=== PATIENT | female | born 1935 | race Caucasian/White ===

== ENCOUNTER 2017-04-21 15:18 | Emergency (ER) | payer MEDICARE ==
[2017-04-21] MEDS ORDERED: traMADol TAB* 50 MG PO ONE (16:12)
--- NOTE | 2017-04-21 16:12 | UC ---
Back Pain HPI - HPI Summary HPI Summary: 3 weeks of worsening hip/back pain on left side--no known injuries or falls, never haad pain simial to this before--HAs been doing usual activities shoveling snow and bringing in wood.States she has been resting and taking a lot of aspirin and that has not helped - History of Current Complaint Chief Complaint: UCLowerExtremity Stated Complaint: LEFT SIDE HIP AND LEG PAIN Time Seen by Provider: 04/21/17 16:00 Hx Obtained From: Patient ?: No Onset/Duration: Gradual Onset, Lasting Weeks - 3, Still Present Timing: Constant Severity Initially: Moderate Severity Currently: Moderate Back Pain: Is Discrete @ - left SI Joint Character: Aching, Throbbing Aggravating Factor(s): Movement, Lifting, Bending, Walking Alleviating Factor(s): Nothing Associated Signs And Symptoms: Positive: Negative - Allergies/Home Medications Allergies/Adverse Reactions: Allergies Allergy/AdvReac Type Severity Reaction Status Date / Time Bee Venom Allergy Swelling Verified 04/21/17 15:46 Penicillins [PCN] Allergy Hives Verified 04/21/17 15:46 Home Medications: Home Medications Aspirin [Aspirtab Maximum Strength] 250 mg PO ONCE PRN 04/21/17 [History Confirmed 04/21/17] Lisinopril [Lisinopril 40 MG-] 40 mg PO DAILY 04/21/17 [History Confirmed ] Simvastatin [Zocor 5 MG-] 20 mg PO DAILY 04/21/17 [History Confirmed 04/21/17] PMH/Surg Hx/FS Hx/Imm Hx Previously Healthy: No Endocrine History: Dyslipidemia Cardiovascular History: Hypertension - Surgical History Surgical History: Yes Surgery Procedure, Year, and Place: C section x1. Right vein removed. T&A - Family History Known Family History: Positive: None - Social History Occupation: Retired Lives: With Family Alcohol Use: None Substance Use Type: None Smoking Status (MU): Never Smoked Tobacco Review of Systems Constitutional: Negative Skin: Negative Eyes: Negative ENT: Negative Respiratory: Negative Cardiovascular: Negative Gastrointestinal: Negative Genitourinary: Negative Motor: Negative Neurovascular: Negative Musculoskeletal: Arthralgia - pain left si jointradiating in to buttock and leg Neurological: Negative Psychological: Negative Is Patient Immunocompromised?: No All Other Systems Reviewed And Are Negative: Yes Physical Exam Triage Information Reviewed: Yes Appearance: Well-Appearing, No Pain Distress, Well-Nourished Vital Signs: Initial Vital Signs Temp 99.0 F 04/21/17 15:42 Pulse 69 04/21/17 15:42 Resp 14 04/21/17 15:42 BP 175/82 04/21/17 15:42 Pulse Ox 99 04/21/17 15:42 Vital Signs Reviewed: Yes Eye Exam: Normal Eyes: Positive: Conjunctiva Clear ENT Exam: Normal ENT: Positive: Normal ENT inspection, Hearing grossly normal, Pharynx normal. Negative: Trismus, Muffled voice, Hoarse voice, Dental tenderness, Sinus tenderness Dental Exam: Normal Neck exam: Normal Neck: Positive: Supple, Nontender, No Lymphadenopathy Respiratory Exam: Normal Respiratory: Positive: Chest non-tender, No respiratory distress, No accessory muscle use Cardiovascular Exam: Normal Cardiovascular: Positive: RRR, Pulses Normal, Brisk Capillary Refill Musculoskeletal Exam: Normal Musculoskeletal: Positive: No Edema, Strength Limited @ - leg, ROM Limited @ - due to pain Neurological Exam: Normal Neurological: Positive: Alert, Muscle Tone Normal Psychological Exam: Normal Skin Exam: Normal Back Pain Course/Dx - Course Course Of Treatment: PHysical therapy, pain med, exercise follow with pcp and ortho med - Differential Dx/Diagnosis Provider Diagnoses: Left sciatic pain, hypertension in poor control Discharge - Discharge Plan Condition: Stable Disposition: HOME Prescriptions: traMADol TAB* [Ultram*] 25 - 50 mg PO Q8H PRN #20 tab MDD 3 PRN Reason: Pain - Moderate To Severe Patient Education Materials: Sciatica (ED), Hypertension (ED), Lower Back Exercises (ED) Referrals: Renzo Rush MD [Medical Doctor] - If Needed Ibeth Coulter MD [Primary Care Provider] - 1 Week
== END 2017-04-21 16:33 | disposition home or self-care (01) ==
LOC: UCCORT 15:18
DX: M54.32 Sciatica, left side (principal); I10 Essential (primary) hypertension; E78.5 Hyperlipidemia, unspecified
CPT/HCPCS: 99212; A9270-GY; G0463

== ENCOUNTER 2017-10-04 14:15 | Inpatient (IN) | payer MEDICARE ==
[2017-10-04] MEDS ORDERED: NS 0.9% 1000 ML*IV.FLUID IV ONE (14:33)
--- NOTE | 2017-10-04 15:14 | RAD ---
Indication: Fever, weakness, nausea, vomiting 3 days duration. Comparison: No relevant prior exams available on the [facility] PACS for comparison. Technique: Upright AP 1500 hours Report: Elevated lung volumes. Diffuse mild prominence of the interstitial markings. Mild alveolar consolidation at the LEFT lung base. Negative for pleural effusion or pneumothorax. The heart, pulmonary vasculature, and mediastinal contours are unremarkable. Negative for free air beneath the diaphragm. IMPRESSION: #. Mild LEFT basilar airspace consolidation concerning for potential pneumonia. Correlate with clinical assessment. #. Potential chronic obstructive pulmonary disease.
[2017-10-04 15:32] LABS: ABS Basophils 0.1 10^3/ul (0-0.2); ABS Eosinophils 0 10^3/ul (0-0.6); ABS Lymphocytes 0.7 10^3/ul (1.0-4.8); ABS Monocytes 0.4 10^3/ul (0-0.8); ABS Neutrophils 3.9 10^3/ul (1.5-7.7); ABS Nucleated RBC 0 10^3/ul; Eosinophil % 0 % (0-6); Hematocrit 40 % (35-47); Hemoglobin 13.9 g/dl (12.0-16.0); Lymphocyte % 13.3 % (25-47); Mean Corpuscular HGB Conc 35 g/dl (31-36); Mean Corpuscular Hemoglobin 30 pg (27-31); Mean Corpuscular Volume 87 fL (80-97); Mean Platelet Volume 7.8 um3 (7.4-10.4); Nucleated Red Blood Cells % 0; Platelet Count 166 10^3/ul (150-450); Red Blood Count 4.59 10^6/ul (4.00-5.40); Red Cell Distribution Width 13 % (10.5-15); White Blood Count 5.1 10^3/ul (3.5-10.8)
[2017-10-04 15:39] LABS: INR 1.06 (0.77-1.02)
[2017-10-04 15:51] LABS: EGFR Non-African American 52.5 (>60)
[2017-10-04] MEDS ORDERED: cefTRIAXone(*) 1 GM in NS 0.9% 50 ML* 50 ML IVPB ONE (16:03)
[2017-10-04] MEDS ORDERED: Azithromycin IV(*) 500 MG in NS 0.9% 250 ML* 250 ML IVPB ONE (16:03)
[2017-10-04] MEDS ORDERED: Ondansetron INJ* 2 MG/ML VIAL IV ONE (16:12)
[2017-10-04] MEDS ORDERED: Acetaminophen TAB* 325 MG PO ONE (16:12)
[2017-10-04] MEDS ORDERED: Ondansetron INJ* 2 MG/ML VIAL IV PRN (17:26)
[2017-10-04] MEDS ORDERED: Benzonatate CAP* 100 MG PO PRN (17:26)
[2017-10-04 17:33] LABS: Urine Appearance Clear; Urine Blood 1+ (Negative); Urine Color Yellow; Urine Ketones Trace (Negative); Urine Protein Negative (Negative); Urine Specific Gravity 1.004 (1.010-1.030); Urine Urobilinogen Negative (Negative)
[2017-10-04] MEDS ORDERED: NS 0.9% 1000 ML* 1,000 ML IV SCH (18:00)
--- NOTE | 2017-10-04 18:22 | RAD ---
CLINICAL HISTORY: Abdominal pain COMPARISON: None TECHNIQUE: Noncontrast CT examination of the abdomen and pelvis from the lung bases through the initial tuberosities. FINDINGS: VISUALIZED LUNG BASES: The visualized lung bases are grossly clear. There is no pleural effusion. ABDOMEN AND PELVIS: Evaluation of the solid organs and vasculature is limited without intravenous contrast. The liver, spleen, pancreas and adrenal glands are grossly normal in appearance. In the dependent portion of the gallbladder there is hyperattenuating material consistent with stones or sludge. At the distal right renal artery there is a partially calcified focus of aneurysmal dilatation measuring 9 mm in greatest axial dimension (series 4 image 63). Otherwise the kidneys are normal in appearance without focal mass, calcification or signs of hydronephrosis. The small and large bowel are not distended.There are innumerable colonic diverticula, not exhibiting focal inflammatory change. There is no gross retroperitoneal or mesenteric lymphadenopathy. The pelvic viscera is normal in appearance. The moderately calcified abdominal aorta and iliac arteries are normal in course and diameter. Degenerative changes include multilevel loss of intervertebral disc height involving the lower thoracic and lumbar spine.There are no sinister bone lesions. IMPRESSION: 1. Hyperattenuating material in the dependent portion of the gallbladder is consistent with stones or sludge. There is no sign of acute inflammatory change or biliary obstruction. 2. 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 This is incompletely evaluated on noncontrast CT examination and can be further characterize with CTA of the abdomen on a nonemergent basis. 3. Diverticulosis without acute inflammatory changes associated with diverticulitis. 4. Additional chronic and degenerative changes as described in the body the report.
[2017-10-04] MEDS ORDERED: NS 0.9% 500 ML* 500 ML IV ONE (19:10)
--- NOTE | 2017-10-04 20:46 | ED ---
Sharyn Baltazar Edward, scribed for Landry Manzano MD on 10/04/17 at 1450 . HPI Febrile Illness - HPI Summary HPI Summary: 82 y/o female presents to the ED c/o general malaise for the past 3 days. Pt c/ o nausea and dry heaves, ABD pain, diffuse joint pain, feeling hot, weakness, dry mouth, and fatigue for the past three days. The ABD pain is intermittent. Pt has been in bed for the past 3 days. Pt has had a decreased appetite and has not eaten much in the past 3 days. Associated sx: ESPINAL. Denies neck pain, cough. Denies urinary symptoms. - History of Current Complaint Chief Complaint: EDFever Time Seen by Provider: 10/04/17 14:42 Hx Obtained From: Patient Onset/Duration: Started Days Ago Timing: Constant Pain Intensity: 5 Aggravating Factors: Nothing Alleviating Factors: Nothing Associated Signs and Symptoms: Headache, Joint Pain - diffuse, Nausea - and dry heaves, Weakness, Other: - dry mouth, hot, fatigue - Allergy/Home Medications Allergies/Adverse Reactions: Allergies Allergy/AdvReac Type Severity Reaction Status Date / Time Penicillins Allergy Unknown Verified 10/04/17 14:51 Reaction Details Home Medications: Home Medications Hydrochlorothiazide TAB* [Hydrodiuril TAB*] 12.5 mg PO DAILY 10/04/17 [History Confirmed 10/04/17] Lisinopril TAB* [Prinivil TAB*] 40 mg PO DAILY 10/04/17 [History Confirmed 10/04] Simvastatin TAB(NF) [Zocor(NF)] 10 mg PO DAILY 10/04/17 [History Confirmed 10/04] amLODIPine TAB* [Norvasc 5 mg TAB*] 5 mg PO DAILY 10/04/17 [History Confirmed ] PMH/Surg Hx/FS Hx/Imm Hx Previously Healthy: No Cardiovascular History: Reports: Hx Hypertension - Surgical History Surgery Procedure, Year, and Place: C section x1. Right vein removed. T&A Infectious Disease History: No Infectious Disease History: Denies: Traveled Outside the [place] in Last 30 Days - Family History Known Family History: Positive: None - Social History Alcohol Use: None Hx Substance Use: No Substance Use Type: Reports: None Hx Tobacco Use: No Smoking Status (MU): Never Smoked Tobacco Review of Systems Positive: Fatigue, Other - hot Eyes: Negative ENT: Negative Cardiovascular: Negative Respiratory: Negative Positive: Abdominal Pain, Nausea - and dry heaves. Negative: Vomiting Genitourinary: Negative Positive: Other - diffuse joint pain Skin: Negative Positive: Headache, Weakness Psychological: Normal All Other Systems Reviewed And Are Negative: Yes Physical Exam Triage Information Reviewed: Yes Vital Signs On Initial Exam: Initial Vitals Temp Pulse Resp BP Pulse Ox 101.2 F 90 22 101/90 99 10/04/17 14:19 10/04/17 14:19 10/04/17 14:19 10/04/17 14:19 10/04/17 14:19 Vital Signs Reviewed: Yes Appearance: Positive: No Pain Distress, Ill-Appearing Skin: Positive: Warm, Skin Color Reflects Adequate Perfusion, Dry Head/Face: Positive: Normal Head/Face Inspection Eyes: Positive: EOMI, ZULY ENT: Positive: Normal ENT inspection Dental: Positive: Other - oral mucosa dry Neck: Positive: Supple, Nontender Respiratory/Lung Sounds: Positive: Clear to Auscultation, Breath Sounds Present Cardiovascular: Positive: RRR Abdomen Description: Positive: Nontender, Soft Bowel Sounds: Positive: Hypoactive Musculoskeletal: Positive: Normal, Strength/ROM Intact Neurological: Positive: Normal, Sensory/Motor Intact, Alert, Oriented to Person Place, Time Psychiatric: Positive: Affect/Mood Appropriate Diagnostics - Vital Signs Vital Signs Temp Pulse Resp BP Pulse Ox 10/04/17 14:19 101.2 F 90 22 101/90 99 - Laboratory Lab Results: Lab Results 10/04/17 10/04/17 10/04/17 Range/Units 15:24 15:24 15:24 WBC 5.1 (3.5-10.8) 10^3/ul RBC 4.59 (4.00-5.40) 10^6/ul Hgb 13.9 (12.0-16.0) g/dl Hct 40 (35-47) % MCV 87 (80-97) fL MCH 30 (27-31) pg MCHC 35 (31-36) g/dl RDW 13 (10.5-15) % Plt Count 166 (150-450) 10^3/ul MPV 7.8 (7.4-10.4) um3 Neut % (Auto) 76.9 (38-83) % Lymph % (Auto) 13.3 L (25-47) % [place] % (Auto) 8.7 H (0-7) % Eos % (Auto) 0 (0-6) % Baso % (Auto) 1.1 (0-2) % Absolute Neuts (auto) 3.9 (1.5-7.7) 10^3/ul Absolute Lymphs (auto) 0.7 L (1.0-4.8) 10^3/ul Absolute Monos (auto) 0.4 (0-0.8) 10^3/ul Absolute Eos (auto) 0 (0-0.6) 10^3/ul Absolute Basos (auto) 0.1 (0-0.2) 10^3/ul Absolute Nucleated RBC 0 10^3/ul Nucleated RBC % 0 INR (Anticoag Therapy) 1.06 H (0.77-1.02) APTT 29.8 (26.0-36.3) seconds Sodium 127 L (135-145) mmol/L Potassium 3.6 (3.5-5.0) mmol/L Chloride 93 L (101-111) mmol/L Carbon Dioxide 22 (22-32) mmol/L Anion Gap 12 H (2-11) mmol/L BUN 18 (6-24) mg/dL Creatinine 1.01 H (0.51-0.95) mg/dL Est GFR ( Amer) 63.5 (>60) Est GFR (Non-Af Amer) 52.5 (>60) BUN/Creatinine Ratio 17.8 (8-20) Glucose 111 H (70-100) mg/dL Lactic Acid (0.5-2.0) mmol/L Calcium 9.5 (8.6-10.3) mg/dL Total Bilirubin 0.70 (0.2-1.0) mg/dL AST 43 H (13-39) U/L ALT 21 (7-52) U/L Alkaline Phosphatase 47 (34-104) U/L Total Creatine Kinase 92 (10-223) U/L Troponin I 0.01 (<0.04) ng/mL C-Reactive Protein 38.47 H (<8.01) mg/L B-Natriuretic Peptide ( - 100) pg/mL Total Protein 7.7 (6.4-8.9) g/dL Albumin 3.9 (3.2-5.2) g/dL Globulin 3.8 (2-4) g/dL Albumin/Globulin Ratio 1.0 (1-3) Lipase 57 (11.0-82.0) U/L Procalcitonin (<0.6) ng/mL Urine Color Urine Appearance Urine pH (5-9) Ur Specific Thompson (1.010-1.030) Urine Protein (Negative) Urine Ketones (Negative) Urine Blood (Negative) Urine Nitrate (Negative) Urine Bilirubin (Negative) Urine Urobilinogen (Negative) Ur Leukocyte Esterase (Negative) Urine WBC (Auto) (Absent) Urine RBC (Auto) (Absent) Ur Squamous Epith Cells (Absent) Urine Bacteria (Absent) Urine Glucose (Negative) 10/04/17 10/04/17 10/04/17 Range/Units 15:24 15:24 15:24 WBC (3.5-10.8) 10^3/ul RBC (4.00-5.40) 10^6/ul Hgb (12.0-16.0) g/dl Hct (35-47) % MCV (80-97) fL MCH (27-31) pg MCHC (31-36) g/dl RDW (10.5-15) % Plt Count (150-450) 10^3/ul MPV (7.4-10.4) um3 Neut % (Auto) (38-83) % Lymph % (Auto) (25-47) % [place] % (Auto) (0-7) % Eos % (Auto) (0-6) % Baso % (Auto) (0-2) % Absolute Neuts (auto) (1.5-7.7) 10^3/ul Absolute Lymphs (auto) (1.0-4.8) 10^3/ul Absolute Monos (auto) (0-0.8) 10^3/ul Absolute Eos (auto) (0-0.6) 10^3/ul Absolute Basos (auto) (0-0.2) 10^3/ul Absolute Nucleated RBC 10^3/ul Nucleated RBC % INR (Anticoag Therapy) (0.77-1.02) APTT (26.0-36.3) seconds Sodium (135-145) mmol/L Potassium (3.5-5.0) mmol/L Chloride (101-111) mmol/L Carbon Dioxide (22-32) mmol/L Anion Gap (2-11) mmol/L BUN (6-24) mg/dL Creatinine (0.51-0.95) mg/dL Est GFR ( Amer) (>60) Est GFR (Non-Af Amer) (>60) BUN/Creatinine Ratio (8-20) Glucose (70-100) mg/dL Lactic Acid 1.5 (0.5-2.0) mmol/L Calcium (8.6-10.3) mg/dL Total Bilirubin (0.2-1.0) mg/dL AST (13-39) U/L ALT (7-52) U/L Alkaline Phosphatase (34-104) U/L Total Creatine Kinase (10-223) U/L Troponin I (<0.04) ng/mL C-Reactive Protein (<8.01) mg/L B-Natriuretic Peptide 22 ( - 100) pg/mL Total Protein (6.4-8.9) g/dL Albumin (3.2-5.2) g/dL Globulin (2-4) g/dL Albumin/Globulin Ratio (1-3) Lipase (11.0-82.0) U/L Procalcitonin 0.2 (<0.6) ng/mL Urine Color Urine Appearance Urine pH (5-9) Ur Specific Thompson (1.010-1.030) Urine Protein (Negative) Urine Ketones (Negative) Urine Blood (Negative) Urine Nitrate (Negative) Urine Bilirubin (Negative) Urine Urobilinogen (Negative) Ur Leukocyte Esterase (Negative) Urine WBC (Auto) (Absent) Urine RBC (Auto) (Absent) Ur Squamous Epith Cells (Absent) Urine Bacteria (Absent) Urine Glucose (Negative) 10/04/17 Range/Units 17:16 WBC (3.5-10.8) 10^3/ul RBC (4.00-5.40) 10^6/ul Hgb (12.0-16.0) g/dl Hct (35-47) % MCV (80-97) fL MCH (27-31) pg MCHC (31-36) g/dl RDW (10.5-15) % Plt Count (150-450) 10^3/ul MPV (7.4-10.4) um3 Neut % (Auto) (38-83) % Lymph % (Auto) (25-47) % [place] % (Auto) (0-7) % Eos % (Auto) (0-6) % Baso % (Auto) (0-2) % Absolute Neuts (auto) (1.5-7.7) 10^3/ul Absolute Lymphs (auto) (1.0-4.8) 10^3/ul Absolute Monos (auto) (0-0.8) 10^3/ul Absolute Eos (auto) (0-0.6) 10^3/ul Absolute Basos (auto) (0-0.2) 10^3/ul Absolute Nucleated RBC 10^3/ul Nucleated RBC % INR (Anticoag Therapy) (0.77-1.02) APTT (26.0-36.3) seconds Sodium (135-145) mmol/L Potassium (3.5-5.0) mmol/L Chloride (101-111) mmol/L Carbon Dioxide (22-32) mmol/L Anion Gap (2-11) mmol/L BUN (6-24) mg/dL Creatinine (0.51-0.95) mg/dL Est GFR ( Amer) (>60) Est GFR (Non-Af Amer) (>60) BUN/Creatinine Ratio (8-20) Glucose (70-100) mg/dL Lactic Acid (0.5-2.0) mmol/L Calcium (8.6-10.3) mg/dL Total Bilirubin (0.2-1.0) mg/dL AST (13-39) U/L ALT (7-52) U/L Alkaline Phosphatase (34-104) U/L Total Creatine Kinase (10-223) U/L Troponin I (<0.04) ng/mL C-Reactive Protein (<8.01) mg/L B-Natriuretic Peptide ( - 100) pg/mL Total Protein (6.4-8.9) g/dL Albumin (3.2-5.2) g/dL Globulin (2-4) g/dL Albumin/Globulin Ratio (1-3) Lipase (11.0-82.0) U/L Procalcitonin (<0.6) ng/mL Urine Color Yellow Urine Appearance Clear Urine pH 7.0 (5-9) Ur Specific [place] 1.004 L (1.010-1.030) Urine Protein Negative (Negative) Urine Ketones Trace A (Negative) Urine Blood 1+ A (Negative) Urine Nitrate Negative (Negative) Urine Bilirubin Negative (Negative) Urine Urobilinogen Negative (Negative) Ur Leukocyte Esterase Negative (Negative) Urine WBC (Auto) Trace(0-5/hpf) (Absent) Urine RBC (Auto) Absent (Absent) Ur Squamous Epith Cells Present A (Absent) Urine Bacteria Absent (Absent) Urine Glucose Negative (Negative) Result Diagrams: 10/04/17 15:24 10/04/17 15:24 Lab Statement: Any lab studies that have been ordered have been reviewed, and results considered in the medical decision making process. - Radiology CXR Xray Interpretation: Positive (See Comments) - #. Mild LEFT basilar airspace consolidation concerning for potential pneumonia. Correlate with clinical assessment. #. Potential chronic obstructive pulmonary disease. Radiology Interpretation Completed By: Radiologist - Additional Comments Diagnostic Additional Comments: 14:45 - NSR @ [address] No ectopy. Course/Dx - Course Course Of Treatment: ADMIT HOSPITALIST. CRITICAL CARE TIME LESS THAN 30 MINUTES. - Diagnoses Provider Diagnoses: Hyponatremia, Weakness, Fever, Pneumonia - Provider Notifications Discussed Care Of Patient With: Jensen Gan Time Discussed With Above Provider: 16:37 Instructed by Provider To: Admit As Inpatient Discharge - Sign-Out/Discharge Documenting (check all that apply): Discharge/Admit/Transfer - Discharge Plan Condition: Stable Disposition: ADMITTED TO [facility] - Billing Disposition and Condition Condition: STABLE Disposition: Admitted to [facility] The documentation as recorded by the Sharyn thurman Edward accurately reflects the service I personally performed and the decisions made by me, Landry Manzano MD.
[2017-10-04] MEDS: Heparin VIAL(*) 5000 UNITS/ML VIAL (FIVE THOUSAND) SUBCUT SCH (23:00)
[2017-10-04] MEDS: guaiFENesin ER TAB 600 MG PO SCH (23:00)
--- NOTE | 2017-10-05 00:11 | HP ---
CC: Dr. Kaylah Staton; Dr. Theodore Gan* ADMISSION HISTORY AND PHYSICAL: DATE OF ADMISSION: 10/04/17 PRIMARY CARE PROVIDER: Dr. Kaylah Staton [place]. MY ATTENDING WHILE IN THE HOSPITAL: Dr. Theodore Gan* (dictated by TAYLOR Quinn). CHIEF COMPLAINT: Fatigue x3 days. HISTORY OF PRESENT ILLNESS: Ms. Wagner is an 82-year-old female with a past medical history significant only for hypertension and hyperlipidemia, who presented with 3 days of fatigue and poor appetite with slight pain in her lower abdomen. The patient states that 3 days ago, she woke up in the morning, felt relatively okay, walked down the stairs, realized she felt horrible, went back upstairs to her bed and did not leave the bed for 3 days. The patient states she felt horrible, did not want to do anything, did not want to eat. The patient denies nausea or vomiting. The patient denies cough, shortness of breath, subjective fevers or chills; however, the patient's daughter states that her apartment was very hot and the patient did not notice. The patient denies dysuria, back pain, pain in her neck. The patient denies photophobia, but states that the lights do bother her. The patient has had no change in her urine except for a significant decrease in the amount of her urine. The patient has not had any recent travel. The patient has not had any recent changes in her diet. The patient has not eaten any spoiled food. The patient has not been exposed to any sick contacts. The patient had a tick bite last year, but has not had a recent tick exposure to her knowledge. The patient has not had any recent illnesses. The patient has not had diarrhea. The patient did have one episode of loose stool without any blood this morning. The patient states pain in her lower abdomen is approximately 1/10, worse with palpation and movement, but that she is frequently able to ignore it. The patient denies any history of urinary tract infection. The patient has not taken any of her meds including her blood pressure medications for 3 days. The patient denies productive cough, wheezing, rashes, swelling. The patient presented to the emergency department and was found to have a fever initially up to 101.2. The patient had no tachycardia, hypotension. The patient has tachypnea. The patient had a chest x-ray, which was read as mild left basilar airspace consolidation concerning for potential pneumonia, correlate with clinical assessment of potential chronic obstructive pulmonary disease. The patient was given empiric therapy for community-acquired pneumonia and the hospitalist service was asked to evaluate for admission. PAST MEDICAL HISTORY: Hypertension, hyperlipidemia. PAST SURGICAL HISTORY: The patient had all her teeth removed when she was approximately 30 years old due to weight loss as well as a . MEDICATIONS: 1. Amlodipine 10 mg p.o. daily. 2. Simvastatin 20 mg p.o. daily. 3. Lisinopril 40 mg p.o. daily. 4. Hydrochlorothiazide 12.5 mg daily. ALLERGIES: PENICILLINS. FAMILY HISTORY: The patient's mother and father of myocardial infarction. The patient has 2 brothers, who of lung cancer. The patient has a sister, who had breast cancer surgery and diverticulitis. The patient has another brother with COPD and a sister, who is alive and healthy. SOCIAL HISTORY: The patient has never smoked; never drank excessively, does not drink actively. Denies illicit drug use. The patient used to be a school lunch manager. The patient is and has 10 living healthy children. The patient likes her surrogate decision makers to be her daughter, Petra Agosto and her granddaughter, Susan Silverio. REVIEW OF SYSTEMS: A 14-point review of systems were reviewed, is negative except as above in the HPI. PHYSICAL EXAMINATION GENERAL: The patient is an 82-year-old female who appears stated age and is sitting in the bed, in no acute distress. VITAL SIGNS: At the time of evaluation, temperature 100.3, pulse rate 77, respiratory rate 18, oxygen saturation 99% on room air, blood pressure 130/91. HEENT: Head: Normocephalic, atraumatic. Sclerae anicteric. No conjunctival injection. Nasal mucosa moist. Oral mucosa moist. No pharyngeal erythema, discharge, or exudate. NECK: Supple, nontender. No lymphadenopathy. No carotid bruit auscultated. No JVD. RESPIRATORY: Single expiratory wheeze heard in the left lung in the front, does not recur after deep inspiration. Decreased lung sounds in the left lower lobe with positive egophony. CARDIAC: Regular rate and rhythm. No clicks, murmurs, gallops, or rubs. Pulses 2+ in the bilateral dorsalis pedis, posterior tibialis, and radial areas. ABDOMEN: Hyperactive bowel sounds present in all 4 quadrants. Slight tenderness to palpation in the suprapubic area without rebound, guarding, or referred rebound. No hepatosplenomegaly. No abdominal bruits auscultated. No hepatojugular reflux. GENITOURINARY: Suprapubic tenderness. No CVA tenderness. NEUROLOGIC: Cranial nerves II through XII intact. No focal deficits. Alert and oriented x3. Somewhat lethargic. SKIN: Clean, dry, and intact. No rash. PSYCHIATRIC: Very pleasant and cooperative. LABORATORY DATA: White blood cell count 5.1, hemoglobin 13.9, hematocrit 40, platelet count 166. INR 1.06, APTT 29.8. Sodium 127, potassium 3.6, chloride 93, carbon dioxide 22, anion gap 12, BUN 18, creatinine 1.01, glucose 111, lactic acid 1.5, calcium 9.5, bilirubin 0.7, AST 43, ALT 21, alkaline phosphatase 47, creatine kinase 92. Troponin I 0.01. CRP 38.47. BNP 22. Total protein 7.7. Albumin 3.9. Globulin 3.8. Lipase 57. STUDIES: Chest x-ray read as mild left basilar airspace consolidation concerning for potential pneumonia, correlate with clinical assessment of potential chronic obstructive pulmonary disease. Electrocardiogram shows normal sinus rhythm. No significant ST segment abnormalities, rate of 82, left axis deviation. No hypertrophy or enlargement. ASSESSMENT AND PLAN/IMPRESSION: Ms. Wagner is an 82-year-old female with past medical history significant for hypertension, hyperlipidemia who has 3 days of fatigue and malaise of sudden and unclear onset who reported to the emergency department and was found to have lobar consolidation suspicious for pneumonia. The patient was admitted to the hospital for concern for community-acquired pneumonia and for fever of unknown origin. 1. Fever, consolidation on chest x-ray, concern for pneumonia: The patient had a relatively abrupt onset of malaise, but no shortness of breath, cough, sputum production, wheezing, or other symptom of respiratory infection. The patient had no history of respiratory infection. No history of smoking. The patient has had lobar consolidation on chest x-ray. The patient will be admitted to the hospital and started on ceftriaxone, azithromycin. The patient will be given guaifenesin and Tessalon as needed for if she develops a cough. Urine antigens for Strep pneumo and Legionella will be sent. The patient does have slightly elevated AST and this is the time of year for Legionella due to widespread air conditioner use. The patient will be monitored closely. The patient meets sepsis criteria with elevated temperature as well as tachypnea. The patient, in the emergency department, was given a 30 mL/kg bolus as well as appropriate antibiotics. The patient will be continued on normal saline at 75 mL an hour. The patient will be monitored closely for her clinical condition __ ___ deteriorate. The patient's lactic acid is normal. 2. Abdominal pain: The patient's abdominal pain may be due to a urinary tract infection, which a urinalysis will be sent. The abdominal pain may also be due to intraabdominal infection such as diverticulitis. However, this does not appear likely. The patient will be sent for CT scan of her abdomen to assess particularly for diverticulitis. Urinary tract infection is covered by empiric community- acquired pneumonia therapy. 3. Hyponatremia: The patient's hyponatremia is likely from SIADH from lung infection. We will give normal saline, but monitor closely for continued decrease in the patient's sodium. The patient is lethargic, but has no significant altered mental status and no focal neurological signs or dizziness. 4. Hypertension: The patient is normotensive, off of her medications for 3 days. The patient will not have her antihypertensives resumed at this time. This will be reassessed as appropriate. 5. Hyperlipidemia: Continue simvastatin. 6. DVT prophylaxis: The patient is high risk due to age and numerous infant birthing history. 7. FEN: The patient will have fluids as above. The patient will have currently diet without caffeine. 8. Code status: The patient would like to be a full code. 9. Disposition: The patient will be admitted to observation for community- acquired pneumonia. The patient's clinical course will dictate discharge needs. TIME SPENT: Approximately 60 minutes were spent on this admission, 30 of which was spent [id number] with the patient obtaining history and physical and discussing the treatment plan. This plan has been discussed with my attending, Dr. Gonzalez Gan, and he is in agreement. TAYLOR QUINN [id number]/[facility] #: [id number] [place]
[2017-10-05] MEDS: Acetaminophen TAB* 325 MG PO PRN (03:10)
[2017-10-05 06:17] LABS: ABS Basophils 0.1 10^3/ul (0-0.2); ABS Eosinophils 0 10^3/ul (0-0.6); ABS Lymphocytes 0.8 10^3/ul (1.0-4.8); ABS Monocytes 0.6 10^3/ul (0-0.8); ABS Neutrophils 2.9 10^3/ul (1.5-7.7); ABS Nucleated RBC 0 10^3/ul; Eosinophil % 0.1 % (0-6); Hematocrit 34 % (35-47); Hemoglobin 11.8 g/dl (12.0-16.0); Mean Corpuscular HGB Conc 35 g/dl (31-36); Mean Corpuscular Hemoglobin 31 pg (27-31); Mean Corpuscular Volume 89 fL (80-97); Nucleated Red Blood Cells % 0.1; Platelet Count 150 10^3/ul (150-450); Red Blood Count 3.84 10^6/ul (4.00-5.40); Red Cell Distribution Width 13 % (10.5-15); White Blood Count 4.4 10^3/ul (3.5-10.8)
[2017-10-05] MEDS: Heparin VIAL(*) 5000 UNITS/ML VIAL (FIVE THOUSAND) SUBCUT SCH ×3 (06:24→21:24)
[2017-10-05 06:30] LABS: EGFR Non-African American 61.5 (>60)
[2017-10-05] MEDS: guaiFENesin ER TAB 600 MG PO SCH ×2 (08:28→21:24)
[2017-10-05] MEDS: CMC:Simvastatin TAB(NF) 10 MG TAB PO SCH (08:31)
--- NOTE | 2017-10-05 14:07 | PN ---
Subjective Date of Service: 10/05/17 Interval History: Patient feeling somewhat better. Still very lethargic. Had fevers overnight. Also had headache and neck pain which she describes as soreness from sleeping on her pillow. Resolved with tylenol. Headache was frontal and also resolved with tylenol. Patient has no changes in vision, CP, SOB, N/V, abdominal pain resolved. Denies Dysuria, dizziness, palpitations, or other pain. Family History: Unchanged from Admission Social History: Unchanged from Admission Past Medical History: Unchanged from Admission Objective Active Medications: Acetaminophen (Tylenol Tab*) 650 mg PO Q6H PRN PRN Reason: FEVER/PAIN Last Admin: 10/05/17 03:10 Dose: 650 mg Benzonatate (Tessalon Cap*) 100 mg PO BID PRN PRN Reason: COUGH Guaifenesin (Mucinex*) 1,200 mg PO BID [facility] Last Admin: 10/05/17 08:28 Dose: 1,200 mg Heparin Sodium (Porcine) (Heparin Vial(*)) 5,000 units SUBCUT Q8HR [facility] Last Admin: 10/05/17 13:11 Dose: 5,000 units Azithromycin 250 mg/ Dextrose 250 mls @ 250 mls/hr IVPB Q24H [facility] Stop: 10/08/17 17:59 Ceftriaxone Sodium 1 gm/ (Sodium Chloride) 50 mls @ 200 mls/hr IVPB Q24H [facility] Stop: 10/10/17 17:14 Ondansetron HCl (Zofran Inj*) 4 mg IV Q6H PRN PRN Reason: NAUSEA Simvastatin (Zocor(Nf)) 10 mg PO DAILY [facility] Last Admin: 10/05/17 08:31 Dose: 10 mg Vital Signs - 8 hr 10/05/17 10/05/17 10/05/17 07:23 08:00 09:58 Temperature 98.4 F Pulse Rate 58 Respiratory 15 15 15 Rate Blood Pressure 99/49 (mmHg) O2 Sat by Pulse 98 Oximetry 10/05/17 11:14 Temperature 98.5 F Pulse Rate 57 Respiratory 15 Rate Blood Pressure 98/49 (mmHg) O2 Sat by Pulse 97 Oximetry Oxygen Devices in Use Now: None Appearance: Patient is an 82yo male who appears stated age and is sitting in the bed in NAD. Eyes: No Scleral Icterus, PERRLA Ears/Nose/Mouth/Throat: NL Teeth, Lips, Gums, Clear Oropharnyx, Mucous Membranes Moist Neck: NL Appearance and Movements; NL JVP, Trachea Midline Respiratory: Symmetrical Chest Expansion and Respiratory Effort, - - Decreased lung sounds in left base. Cardiovascular: NL Sounds; No Murmurs; No JVD, RRR, No Edema Abdominal: NL Sounds; No Tenderness; No Distention, No Hepatosplenomegaly Lymphatic: No Cervical Adenopathy Extremities: No Edema, No Clubbing, Cyanosis Skin: No Rash or Ulcers, No Nodules or Sclerosis Neurological: Alert and Oriented x 3, NL Sensation, NL Muscle Strength and Tone , - - CN II-XII intact. Result Diagrams: 10/05/17 05:40 10/05/17 12:03 Additional Lab and Data: Lab Results Microbiology and Other Data: Microbiology 10/05/17 08:10 Legionella Urinary Antigen - Final Urine Negative Legionella Antigen Streptococcus pneumoniae Ag Screen - Final Negative S. pneumo Antigen Assess/Plan/Problems-Billing Assessment: Patient is an 82yo female with a PMH only for HTN, HLD who is admitted with fevers, chills, malaise and left lobar consolidation and is receiving treatment for CAP. - Patient Problems (1) CAP (community acquired pneumonia) Current Visit: Yes Status: Acute Code(s): J18.9 - PNEUMONIA, UNSPECIFIED ORGANISM SNOMED Code(s): 690210434 Comment: Fatigue, Fever, Lobar consolidation. Improving on antibiotics subjectively. Borderline hypotension. Continue fluids. Continue Ceftriaxone and Azithromycin. Supportive care. Blood cultures pending. Negative urine antigens. Headache and neck pain does not likely represent Meningitis. (2) HTN (hypertension) Current Visit: Yes Status: Acute Code(s): I10 - ESSENTIAL (PRIMARY) HYPERTENSION SNOMED Code(s): 93931321 Comment: Borderline hypotensive. Hold medications. (3) HLD (hyperlipidemia) Current Visit: Yes Status: Acute Code(s): E78.5 - HYPERLIPIDEMIA, UNSPECIFIED SNOMED Code(s): 16486527 Comment: Continue statin. (4) Hyponatremia Current Visit: Yes Status: Acute Code(s): E87.1 - HYPO-OSMOLALITY AND HYPONATREMIA SNOMED Code(s): 57295491 Comment: Initially 127 likely due to SIADH from lung infection. Resolved with fluids. Monitor for overcorrection. (5) DVT prophylaxis Current Visit: Yes Status: Acute Code(s): EHA2950 - SNOMED Code(s): 389502416 Comment: Heparin SubQ. (6) Full code status Current Visit: Yes Status: Acute Code(s): Z78.9 - OTHER SPECIFIED HEALTH STATUS SNOMED Code(s): 826550317 Status and Disposition: Inpatient.
[2017-10-05] MEDS ORDERED: cefTRIAXone(*) 1 GM in NS 0.9% 50 ML* 50 ML IVPB SCH (16:00)
[2017-10-05] MEDS ORDERED: Azithromycin IV(*) 250 MG in D5W 250 ML BAG* 250 ML IVPB SCH (17:00)
[2017-10-06] MEDS: Heparin VIAL(*) 5000 UNITS/ML VIAL (FIVE THOUSAND) SUBCUT SCH ×2 (05:36→14:09)
[2017-10-06 07:22] LABS: ABS Basophils 0.1 10^3/ul (0-0.2); ABS Eosinophils 0 10^3/ul (0-0.6); ABS Lymphocytes 1.8 10^3/ul (1.0-4.8); ABS Monocytes 0.5 10^3/ul (0-0.8); ABS Neutrophils 1.3 10^3/ul (1.5-7.7); ABS Nucleated RBC 0 10^3/ul; Eosinophil % 1.1 % (0-6); Hematocrit 34 % (35-47); Hemoglobin 11.8 g/dl (12.0-16.0); Lymphocyte % 48.9 % (25-47); Mean Corpuscular HGB Conc 34 g/dl (31-36); Mean Corpuscular Hemoglobin 31 pg (27-31); Mean Corpuscular Volume 89 fL (80-97); Nucleated Red Blood Cells % 0; Platelet Count 162 10^3/ul (150-450); Red Blood Count 3.86 10^6/ul (4.00-5.40); Red Cell Distribution Width 13 % (10.5-15); White Blood Count 3.6 10^3/ul (3.5-10.8)
[2017-10-06 07:38] LABS: EGFR Non-African American 67.7 (>60)
[2017-10-06] MEDS: Acetaminophen TAB* 325 MG PO PRN (08:08)
[2017-10-06] MEDS: guaiFENesin ER TAB 600 MG PO SCH (08:09)
[2017-10-06] MEDS: CMC:Simvastatin TAB(NF) 10 MG TAB PO SCH (08:09)
[2017-10-06] MEDS ORDERED: Azithromycin IV(*) 250 MG in NS 0.9% 250 ML* 250 ML IVPB SCH ×2 (08:29→14:00)
--- NOTE | 2017-10-06 09:38 | PN ---
Subjective Date of Service: 10/06/17 Interval History: Patient seen and examined at bedside. Denies fever, chills, shortness of breath , chest discomfort, N/V/D. Pt states that she is feeling much better. Pt with back pain this morning, that has improved after medication. Family History: Unchanged from Admission Social History: Unchanged from Admission Past Medical History: Unchanged from Admission Objective Active Medications: Acetaminophen (Tylenol Tab*) 650 mg PO Q6H PRN Reason: FEVER/PAIN Benzonatate (Tessalon Cap*) 100 mg PO BID PRN Reason: COUGH Guaifenesin (Mucinex*) 1,200 mg PO BID [facility] Heparin Sodium (Porcine) (Heparin Vial(*)) 5,000 units SUBCUT Q8HR [facility] Ceftriaxone Sodium 1 gm/ (Sodium Chloride) 50 mls @ 200 mls/hr IVPB Q24H [facility] Stop: 10/10/17 16:14 Azithromycin 250 mg/ Sodium (Chloride) 250 mls @ 250 mls/hr IVPB Q24HR@1700 [facility] Ondansetron HCl (Zofran Inj*) 4 mg IV Q6H PRN Reason: NAUSEA Simvastatin (Zocor(Nf)) 10 mg PO DAILY [facility] Vital Signs - 8 hr 10/06/17 10/06/17 04:30 07:47 Temperature 97.8 F 98.5 F Pulse Rate 66 63 Respiratory 16 27 Rate Blood Pressure 129/59 155/68 (mmHg) O2 Sat by Pulse 99 99 Oximetry Oxygen Devices in Use Now: None Appearance: NAD, sitting up on the side of the bed Ears/Nose/Mouth/Throat: Mucous Membranes Moist Respiratory: Symmetrical Chest Expansion and Respiratory Effort, Clear to Auscultation - , diminished Cardiovascular: NL Sounds; No Murmurs; No JVD, RRR Abdominal: NL Sounds; No Tenderness; No Distention Extremities: No Edema Skin: No Rash or Ulcers Neurological: Alert and Oriented x 3, NL Muscle Strength and Tone Lines/Tubes/Other Access: Clean, Dry and Intact Peripheral IV - site benign Nutrition: Taking PO's Result Diagrams: 10/06/17 07:13 10/06/17 07:13 Additional Lab and Data: . Microbiology and Other Data: Microbiology 10/05/17 08:10 Legionella Urinary Antigen - Final Urine Negative Legionella Antigen Streptococcus pneumoniae Ag Screen - Final Negative S. pneumo Antigen Assess/Plan/Problems-Billing Assessment: Ms. Wagner is an 82yo female with a PMH significant for HTN, HLD who is admitted with fevers, chills, malaise and left lobar consolidation and is receiving treatment for CAP. - Patient Problems (1) CAP (community acquired pneumonia) Code(s): J18.9 - PNEUMONIA, UNSPECIFIED ORGANISM SNOMED Code(s): 377844233 Comment: - Afebrile for > 24 hours and no leukocytosis - Blood culture no growth day 1 - Legionella and S. Pneumo urine antigens negative - Continue Ceftriaxone and Azithromycin (2) Hyponatremia Code(s): E87.1 - HYPO-OSMOLALITY AND HYPONATREMIA SNOMED Code(s): 37342896 Comment: - Resolved - Suspect secondary to SIADH from lung infection (3) HTN (hypertension) Code(s): I10 - ESSENTIAL (PRIMARY) HYPERTENSION SNOMED Code(s): 02702899 Comment: - Mostly normotensive, SBP 90-150's - Resume amlodipine and continue to hold Lisinopril and HCTZ (4) HLD (hyperlipidemia) Code(s): E78.5 - HYPERLIPIDEMIA, UNSPECIFIED SNOMED Code(s): 66351009 Comment: Continue statin (5) DVT prophylaxis Code(s): GHE1731 - SNOMED Code(s): 227963950 Comment: - Heparin SubQ (6) Full code status Code(s): Z78.9 - OTHER SPECIFIED HEALTH STATUS SNOMED Code(s): 357875767 Status and Disposition: Inpatient. Stable for discharge to home later today.
[2017-10-06] MEDS ORDERED: cefTRIAXone(*) 1 GM in NS 0.9% 50 ML* 50 ML IVPB SCH (15:00)
[2017-10-06 16:47] VITALS: BP 123/64
--- NOTE | 2017-10-06 18:02 | DS ---
CC: Suleman Escobar * DISCHARGE SUMMARY: DATE OF ADMISSION: 10/04/17 DATE OF DISCHARGE: 10/06/17 ATTENDING PHYSICIAN: Dr. Candace Stein * (dictated by Camilla Pryor NP) PRIMARY CARE PROVIDER: Suleman Escobar. PRIMARY DIAGNOSES: 1. Community-acquired pneumonia. 2. Hyponatremia, resolved. SECONDARY DIAGNOSES: 1. Hypertension. 2. Hyperlipidemia. STUDIES WHILE IN THE HOSPITAL: 1. Chest x-ray from 10/04/17. Radiologist's impression: Mild left basilar airspace consolidation concerning for potential pneumonia. Correlate with clinical assessment. Potential chronic obstructive pulmonary disease. 2. Abdomen and pelvis CT on 10/04/17. Radiologist's impression: Hyperattenuating material in the dependent portion of the gallbladder is consistent with stones or sludge. There is no sign of acute inflammatory change or biliary obstruction. 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 This is incompletely evaluated on noncontrast CT examination and can be further characterized with CTA of the abdomen on a nonemergency basis. Diverticulosis without acute inflammatory changes associated with diverticulitis. Additional chronic and degenerative changes as described in the body of the report. DISCHARGE MEDICATIONS: New home medications: 1. Azithromycin 250 mg oral daily for 2 more days. 2. Cefdinir 300 mg oral twice daily for 7 more days. 3. Guaifenesin ER 1200 mg oral twice daily. 4. Acetaminophen 650 mg oral every 6 hours as needed for fever or pain. Continued home medications: 1. Norvasc 5 mg oral daily. 2. Simvastatin 10 mg oral daily. Medications on hold: 1. Lisinopril. 2. Hydrochlorothiazide. HISTORY OF PRESENT ILLNESS/HOSPITAL COURSE: Ms. Wagner is an 82-year-old female with past medical history significant for hypertension and hyperlipidemia , who presented to the emergency room with complaints of 3 days of fatigue and poor appetite with pain in her lower abdomen. The patient was feeling horrible and did not leave her bed for 3 days. She was not wanting to do anything or eat. She denied nausea or vomiting. She denied cough, shortness of breath, fever, or chills. The patient's apartment was reported to be very hot, but the patient did not notice the temperature was warm. The patient had a tick bite last year, but had not had any recent tick exposure to her knowledge. She denied any diarrhea. She presented to the emergency room for further evaluation. While in the emergency room, the patient was found to have a fever initially of 101.2 without tachycardia and was noted to be hypotensive. She also was noted to have tachypnea. She had a chest x-ray showing a mild left basilar airspace consolidation concerning for potential pneumonia. The patient was given IV antibiotics and deferred to the hospitalist for further evaluation and admission. While in the hospital, the patient received IV ceftriaxone and azithromycin. Her last fever was on 10/05/17, around 3 a.m., maxing at 101.7. The patient continued to be slightly hypotensive, intermittently tachypneic. She had no leukocytosis. Her labs remained unremarkable. She had a procalcitonin of 0.2. The patient was feeling better, eating, and ambulating. Has been afebrile for over 24 hours. Ms. Wagner is stable for discharge home today. Vital signs are as follows: Temperature 98.1, heart rate 51, respiratory rate 21, O2 sat 99% on room air, blood pressure 111/50. DISCHARGE PLAN: Ms. Wagner will be discharged to home. Activity as tolerated. She should be on a heart-healthy diet. In regards to her community-acquired pneumonia, she will be continued on cefdinir 300 mg oral twice daily for 7 more days to complete a 10-day course of cephalosporin. She will be continued on azithromycin 250 mg oral daily for 2 more days to complete a 5-day course of azithromycin. The patient can continue to take guaifenesin ER for her cough in addition to acetaminophen as needed for any fever or pain. The patient has been asked to call her primary care provider, Dr. Kaylah Staton, on Sunday morning to set up a followup appointment. In regards to the patient's hypertension, she has actually been normotensive to hypotensive during her stay. I have asked her to continue to hold her lisinopril and hydrochlorothiazide until she was seen in followup and this can be resumed accordingly. The patient has been asked to return to the emergency room for any chest pain, shortness of breath. 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 This should be evaluated on a nonemergent basis with a CTA of the abdomen. Additionally, at followup, please follow the patient's blood pressure and resume her blood pressure medications as needed or discontinue them as indicated. This is a summarized report of a complex medical history and hospital stay. For further details, please see the entire medical record. CONDITION ON DISCHARGE: Stable. TIME SPENT: Time for this discharge was approximately 50 minutes, greater than half of that was spent with the patient [id number] discussing discharge plans and instructions. Reviewed by GISSELLE BRICEÑO 10/08/17 1827 [id number]/[facility] #: [id number] [place]
== END 2017-10-06 17:30 | disposition home or self-care (01) | DRG 194 ==
LOC: ED 14:15 → MED 17:26 → OBSVTOIN 10-05 07:51
PROVIDERS: ADMIT Internal Medicine; ATTEND Internal Medicine
DX: J18.9 Pneumonia, unspecified organism (principal); E87.1 Hypo-osmolality and hyponatremia; I10 Essential (primary) hypertension; E78.5 Hyperlipidemia, unspecified; R10.9 Unspecified abdominal pain; I95.9 Hypotension, unspecified; K57.90 Diverticulosis of intestine, part unspecified, without perforation or abscess without bleeding; I72.2 Aneurysm of renal artery; Z88.0 Allergy status to penicillin; Z82.49 Family history of ischemic heart disease and other diseases of the circulatory system; Z80.1 Family history of malignant neoplasm of trachea, bronchus and lung; Z80.3 Family history of malignant neoplasm of breast; Z82.5 Family history of asthma and other chronic lower respiratory diseases
CPT/HCPCS: 36415; 71045; 74176; 80048; 80053; 81003; 81015; 82550; 83605; 83690; 83735; 83880; 84145; 84300; 84484; 85025; 85610; 85730; 86140; 86618; 86738; 87040; 87086; 87899; 93005; 99285; A9270-GY; G0378; J0456; J0696; J1644; J2405